=== PATIENT | male | born 1990 | race Caucasian/White ===

== ENCOUNTER → 2017-05-05 | Outpatient (CLI) | payer OTHER ==
--- NOTE | 2017-05-05 17:44 | XR ---
EXAMINATION TYPE: XR hand complete LT , 3 VIEWS DATE OF EXAM ORDERED: 05/05/2017 HISTORY: S61.432A Nail gun @ MCP 2nd digit palmar aspect. COMPARISON: None. FINDINGS: No fracture, dislocation or radiopaque foreign body is seen. IMPRESSION: NO ACUTE OSSEOUS LESION.
== END ==
LOC: RADXRMAIN 17:16
PROVIDERS: ATTEND Emergency Medicine
DX: S61.432A Puncture wound without foreign body of left hand, initial encounter (principal)

== ENCOUNTER 2019-03-26 21:17 | Emergency (ER) | payer BC, OTHER ==
[2019-03-26 21:24] VITALS: RESP 18
--- NOTE | 2019-03-26 22:37 | XR ---
EXAMINATION TYPE: XR lumbar spine 2 or 3V DATE OF EXAM: 03/26/2019 COMPARISON: NONE HISTORY: Back pain TECHNIQUE: 3 views FINDINGS: Lumbar vertebra have normal spacing and alignment. Posterior elements are intact. Sacroilia c joints appear normal. There is no compression fracture. IMPRESSION: Negative lumbar spine exam.
[2019-03-26 22:56] LABS: Appearance,Urine Clear (Clear); Bacteria,Urine Rare /hpf; Bilirubin,Urine Negative (Negative); Blood,Urine Small (Negative); Color,Urine Yellow; Glucose,Urine (UA) Negative (Negative); Ketones,Urine Negative (Negative); Leukocyte Esterase,Urine Negative (Negative); Mucus,Urine Rare /hpf; Nitrite,Urine Negative (Negative); PH, Urine 5.5 (5.0-8.0); Protein,Urine Negative (Negative); RBC,Urine 10 /hpf (0-5); Urobilinogen,Urine <2.0 mg/dL (<2.0); WBC,Urine 1 /hpf (0-5)
--- NOTE | 2019-03-26 23:17 | ED ---
General Adult HPI - General Chief complaint: Back Pain/Injury Stated complaint: Back Pain Time Seen by Provider: 03/26/19 21:42 Source: patient, RN notes reviewed, old records reviewed Mode of arrival: ambulatory Limitations: no limitations - History of Present Illness Initial comments: 28-year-old male patient with the chief complaint of right paralumbar back pain. 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 Patient reports that he resolved. Patient does report that approximately one hour later while having a bowel movement he can experience this pain. This time radiated towards his right testicle region. Also this resolved after approximately 5-10 minutes. Patient denies any past medical history. Denies any chronic medical conditions or any regular medication. Patient is currently pain-free at this time. Denies any back pain, no testicle pain. Denies any nausea vomiting diarrhea. Denies other complaints. Systemic: Pt denies fatigue, fever/chills, rash. Pt denies weakness, night sweats, weight loss. Neuro: Pt denies headache, visual disturbances, syncope or pre-syncope. HEENT: Pt denies ocular discharge or irritation, otalgia, rhinorrhea, pharyngitis or notable lymphadenopathy. Cardiopulmonary: Pt denies chest pain, SOB, heart palpitations, dyspnea on exertion. Abdominal/GI: Pt denies abdominal pain, n/v/d. : Pt denies dysuria, burning w/ urination, frequency/urgency. Denies new onset urinary or bowel incontinence. MSK: Pt denies loss of strength or function in extremities. Neuro: Pt denies new onset weakness, paresthesias. - Related Data Home Medications Medication Instructions Recorded Confirmed No Known Home Medications 03/26/19 03/26/19 Allergies Allergy/AdvReac Type Severity Reaction Status Date / Time No Known Allergies Allergy Verified 03/26/19 21:46 Review of Systems ROS Statement: Those systems with pertinent positive or pertinent negative responses have been documented in the HPI. ROS Other: All systems not noted in ROS Statement are negative. Past Medical History Past Medical History: No Reported History History of Any Multi-Drug Resistant Organisms: None Reported Past Surgical History: No Surgical Hx Reported Past Psychological History: No Psychological Hx Reported Smoking Status: Never smoker Past Alcohol Use History: Occasional Past Drug Use History: None Reported General Exam - General Exam Comments Initial Comments: Constitutional: NAD, AOX3, Pt has pleasant affect. HEENT: NC/AT, trachea midline, neck supple, no lymphadenopathy. Posterior pharynx non erythematous, without exudates. External ears appear normal, without discharge. Mucous membranes moist. Eyes PERRLA, EOM intact. There is no scleral icterus. No pallor noted. Cardiopulmonary: RRR, no murmurs, rubs or gallops, no JVD noted. Lungs CTAB in anterior and posterior weiner. No peripheral edema. Abdominal exam: Abdomen soft and non-distended. Abdomen non-tender to palpation in all 4 quadrants. Bowel sounds active in LLQ. No hepatosplenomegaly. No ecchymosis Neuro: CN II-XII grossly intact. No nuchal rigidity. No raccon eyes, no hassan sign, no hemotympanum. No cervical spinal tenderness. MSK: Lumbar spine nontender. No posterior calf tenderness bilaterally, homans sign negative bilaterally. Posterior tibialis and radial pulse +2 bilaterally. Sensation intact in upper and lower extremities. Full active ROM in upper and lower extremities, 5/5 stregnth. : Testicles nontender bilaterally. Creamesteric reflex intact. No blue dot sign. No masses. Limitations: no limitations Course Vital Signs 03/26/19 21:21 Temperature 97.9 F Pulse Rate 72 Respiratory 18 Rate Blood Pressure 120/78 O2 Sat by Pulse 98 Oximetry Medical Decision Making - Medical Decision Making 28-year-old male patient with the chief complaint of right paralumbar back pain. 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 Patient reports that he resolved. Patient does report that approximately one hour later while having a bowel movement he can experience this pain. This time radiated towards his right testicle region. Also this resolved after approximately 5-10 minutes. Patient denies any past medical history. Denies any chronic medical conditions or any regular medication. Patient is currently pain-free at this time. Denies any back pain, no testicle pain. Denies any nausea vomiting diarrhea. Denies other complaints. Patient vital signs stable, afebrile. Physical exam did not display acute pathology. Laboratory investigations revealed 10 red blood cells. Lumbar spine displayed no acute process. It is possible the patient pain his experiencing was passing a small kidney stone. As patient is currently asymptomatic at this time. Initial investigations were offered patient however he declined. Patient discharged, follow up with primary care provider and return to ER if condition worsens. Case discussed with Dr. Dunham. - Lab Data Lab Results 03/26/19 Range/Units 22:35 Urine Color Yellow Urine Appearance Clear (Clear) Urine pH 5.5 (5.0-8.0) Ur Specific [place] 1.020 (1.001-1.035) Urine Protein Negative (Negative) Urine Glucose (UA) Negative (Negative) Urine Ketones Negative (Negative) Urine Blood Small H (Negative) Urine Nitrite Negative (Negative) Urine Bilirubin Negative (Negative) Urine Urobilinogen <2.0 (<2.0) mg/dL Ur Leukocyte Esterase Negative (Negative) Urine RBC 10 H (0-5) /hpf Urine WBC 1 (0-5) /hpf Urine Bacteria Rare H (None) /hpf Urine Mucus Rare H (None) /hpf Disposition Clinical Impression: Lumbar back pain Disposition: HOME SELF-CARE Condition: Stable Instructions (If sedation given, give patient instructions): Acute Low Back Pain (ED) Additional Instructions: Patient to adhere to previously discussed treatment plan and will take medication(s) as directed. Patient to follow up with PCP in 1-2 days. Patient to return to ED if symptoms do not improve. Follow-up with primary care primary tomorrow. Return to ER if condition worsens. Is patient prescribed a controlled substance at d/c from ED?: No Referrals: Baljinder Coppola MD [Primary Care Provider] - 1-2 days
[2019-03-26 23:27] VITALS: BP 125/72; PULSE 70; TEMP 98
== END 2019-03-26 23:29 | disposition home or self-care (01) ==
LOC: EC 21:17
DX: M54.5 Low back pain (principal)
CPT/HCPCS: 72100; 81001; 99284

== ENCOUNTER → 2019-12-28 | Outpatient (CLI) | payer OTHER ==
--- NOTE | 2019-12-28 16:44 | XR ---
EXAMINATION TYPE: XR hand complete LT DATE OF EXAM: 12/28/2019 COMPARISON: NONE HISTORY: Pain TECHNIQUE: Three views are submitted. FINDINGS: The osseous structures are intact. The joint spaces are preserved and there is no acute fracture or dislocation. No metallic foreign body. IMPRESSION: 1. No definite acute fracture or dislocation if symptoms persist, follow-up study in 7 to 10 days wo uld be suggested
== END | disposition home or self-care (01) ==
LOC: RADXRMAIN 16:07
PROVIDERS: ATTEND Emergency Medicine
DX: S61.432A Puncture wound without foreign body of left hand, initial encounter (principal)

== ENCOUNTER 2020-12-27 | Emergency (ER) | payer BC | END 2020-12-27 18:47 | disposition home or self-care (01) ==

== ENCOUNTER → 2024-04-24 | Outpatient (CLI) | payer OTHER ==
--- NOTE | 2024-04-24 15:09 | XR ---
EXAMINATION TYPE: XR ankle complete LT DATE OF EXAM: 04/24/2024 COMPARISON: NONE HISTORY: Pain FINDINGS: Three views of the ankle demonstrate the ankle mortise to be intact and symmetric. The joint spaces are preserved. The osseous structures are intact. A tiny enthesophyte or spur at the Achilles inser tion of the calcaneus. IMPRESSION: 1. No definite acute fracture or dislocation, if symptoms persist follow-up study in 7 to 10 days wou ld be suggested. [facility], , 04/24/2024 3:07 PM
--- NOTE | 2024-04-24 15:11 | XR ---
EXAMINATION TYPE: XR foot complete LT DATE OF EXAM: 04/24/2024 COMPARISON: NONE CLINICAL INDICATION: Male, 34 years old with history of S93.492A, S93.602A; TECHNIQUE: Three views are submitted. FINDINGS: The osseous structures are intact. There is no acute fracture or dislocation. Joint spaces are p reserved. Small spur or enthesophyte involving the Achilles insertion of the calcaneus. Hammertoe def ormities of the second through fifth digits. IMPRESSION: 1. No acute fracture or dislocation. If symptoms persist, follow-up exam in 7 to 10 days could be ob tained. [facility], , 04/24/2024 3:09 PM
== END | disposition home or self-care (01) ==
LOC: RADXRMAIN 14:41
PROVIDERS: ATTEND Emergency Medicine
DX: S93.492A Sprain of other ligament of left ankle, initial encounter (principal); S93.602A Unspecified sprain of left foot, initial encounter

== ENCOUNTER → 2024-12-05 | Outpatient (CLI) | payer BC, OTHER ==
--- NOTE | 2024-12-05 19:51 | CA ---
Exercise Stress Test Report Name: Fer Pena Exam Date: 12/05/2024 12:05 Exam Location: [facility] Stress Ht (in): 65 Wt (lb): 274 BSA: 2.26 Ordering Phys: Xiang Mart MD Referring Phys: Anish Hu Technologist: RODNEY WATTS Age: 34 Gender: M : 1990 Procedure CPT: Indications: R07.89 other chest pain ICD-10 Codes: Patient History: CP, FAMILY HX FATHER. Medications: NONE,,, Meds past 24 hrs: Pretest Chest Pain: STRESS TEST Jones Protocol Exercise Duration (min:sec): 09:[address] Depressions (mm): 0 Angina Score: 0 Castro Score: 9 Resting HR (bpm): 87 Peak HR (bpm): 161 Resting BP (mmHg): 127 / 50 Peak BP (mmHg): 214 / 90 MPHR: 188 Target HR: 160 % MPHR: 86 METS: 10.3 Total Dose: Peak Dose: Atropine: Double Product: 77894 BP Response: Stress Termination: TARGET HR REACHED/MAX EXERTION Stress Symptoms: NO SYMPTOMS Stress Summary: The patient's target heart rate was achieved ECG ANALYSIS Resting ECG: Sinus rhythm. Normal conduction. No arrhythmias. Normal repolarization. Stress ECG: No ECG evidence of ischemia with exercise. CONCLUSIONS Patient falls into low-risk group (DTS >= +5). This associates the patient with an annual CV mortality <= 0.5%. Good exercise tolerance Normal electrocardiographic response to exercise with no evidence of stress-induced ischemia Dr. Ruby Wood MD (Electronically Signed) Final Date: 05 December 2024 19:50
== END | disposition home or self-care (01) ==
LOC: RADNMMAIN 11:36
PROVIDERS: ATTEND Family Medicine
DX: R07.89 Other chest pain (principal)
CPT/HCPCS: 93017